=== PATIENT | female | born 1945 | race Caucasian/White ===

== ENCOUNTER 2017-01-25 13:41 | Emergency (ER) | payer MEDICARE, BC ==
[~2017-01-25] VITALS: Ht 165.1 cm; Wt 53.5 kg
[~2017-01-25 13:41] MED LIST: AMBIEN; AMBIEN5 MG ORAL; AUGMENTIN 875-1 EACH PO; CRESTOR10 MG PO; CRESTOR20 MG ORAL; PLAQUENIL200 MG ORAL; PREDNISONE5 MG ORAL; SULFAMETHOXAZO1 EAC2 ORAL; TRAMADOL HCL50 MG ORAL; XANAX; XANAX0.5 MG ORAL; [UNRECOGNIZED DRUG - OTHER] PO
[2017-01-25 13:58] VITALS: BP 113/60
--- NOTE | 2017-01-25 14:18 | Emergency Room Report ---
History of Present Illness General Chief Complaint: Animal Bite Source: Patient Present Illness HPI 71 YO Female presents to the ED c/o Itching, swelling, and erythema of the left foot s/p being stung by a bee while walking barefoot in her backyard. pt. reports that she took 25mg Benadryl [employer], and has been icing her foot, however swelling and erythema have been progressing since this am. pt. states tetanus vaccination was updated three years ago. denies fevers, or chills. pt. reports that she has a very weak immune system as she has lupus. denies wheezing, swelling of the lips or tongue, SOB, or dyspnea. pt. states she removed the stinger from the left middle toe using a kitchen knife, denies bleeding or open wounds otherwise. denies itching, reports moderate burning sensation 4/10 in severity. Denies CP, Palpitations, LOC, AMS, dizziness, Changes in Vision, Sensation, paresthesias, or a sudden severe headache. Allergies: Coded Allergies: MEPERIDINE HCL (Verified Allergy, Severe, HEART STOPPED, 05/22/12) Patient History Past Medical History: see triage record Past Surgical History: none Pertinent Family History: none Now: No Immunizations: UTD Reviewed Nursing Documentation: PMH: Agreed, PSxH: Agreed Review of Systems All Other Systems: negative except mentioned in HPI Physical Exam Vital Signs Date Time Temp Pulse Resp B/P Pulse Ox O2 Delivery O2 Flow Rate FiO2 01/25/17 13:49 98.6 84 15 113/60 98 Room Air Sp02 EP Interpretation: reviewed, normal General Appearance: no apparent distress, alert, GCS 15, non-toxic Head: normocephalic, atraumatic Eyes: bilateral eye PERRL, bilateral eye normal inspection ENT: hearing grossly normal, normal pharynx, no angioedema, normal voice Neck: full range of motion, supple/symm/no masses Respiratory: lungs clear, normal breath sounds, speaking full sentences Cardiovascular #1: regular rate, rhythm, no edema Musculoskeletal: back normal, gait/station normal, normal range of motion, non- tender, no calf tenderness Neurologic: alert, oriented x3, responsive, motor strength/tone normal, sensory intact, speech normal Psychiatric: judgement/insight normal, memory normal, mood/affect normal Skin: normal color, no rash, warm/dry, well hydrated, other - swelling , erythema, and increased temperature to the left foot, no obvious puncture wound , stinger or fb noted. pulses are intact. Lymphatic: no adenopathy Medical Decision Making PA Attestation Dr. Ventura is my supervising Physician whom patient management has been discussed with. Diagnostic Impression: Primary Impression: Local reaction to bee sting Qualified Codes: T63.443A - Toxic effect of venom of bees, assault, initial encounter ER Course 71 YO Female presents to the ED c/o Itching, swelling, and erythema of the left foot s/p being stung by a bee while walking barefoot in her backyard. pt. reports that she took 25mg Benadryl [employer], and has been icing her foot, however swelling and erythema have been progressing since this am. pt. states tetanus vaccination was updated three years ago. denies fevers, or chills. pt. reports that she has a very weak immune system as she has lupus. denies wheezing, swelling of the lips or tongue, SOB, or dyspnea. pt. states she removed the stinger from the left middle toe using a kitchen knife, denies bleeding or open wounds otherwise. denies itching, reports moderate burning sensation 4/10 in severity. Denies CP, Palpitations, LOC, AMS, dizziness, Changes in Vision, Sensation, paresthesias, or a sudden severe headache. Ddx considered but are not limited to cellulitis, Bee Sting, scabies, insect bites, tic bites, spider bites, contact dermatitis, Drug reaction, allergic reaction, fungal infection, lice. Vital signs: are WNL, pt. is afebrile H&PE are most consistent with local reaction to suspected bee- sting, in an immunocompromised pt. ORDERS: none required at this time, the diagnosis is clinical ED INTERVENTIONS: -Pt is given an Ice pack - Tylenol PO DISCHARGE: At this time pt. is stable for d/c to home. Will provide printed patient care instructions, and any necessary prescriptions. Care plan and follow up instructions have been discussed with the patient prior to discharge. Last Vital Signs Date Time Temp Pulse Resp B/P Pulse Ox O2 Delivery O2 Flow Rate FiO2 01/25/17 13:49 98.6 84 15 113/60 98 Room Air Disposition: HOME, SELF-CARE Condition: Stable Scripts Cephalexin* (KEFLEX*) 500 Mg Capsule 500 MG ORAL EVERY 12 HOURS for 7 Days, #14 CAP 0 Refills Prov: Deann Stoddard 01/25/17 Acetaminophen* (TYLENOL EXTRA STRENGTH*) 500 Mg Tablet 500 MG ORAL Q6H, #20 TAB 0 Refills Prov: Deann Stoddard 01/25/17 Patient Instructions: Insect Bite Additional Instructions: Take medications as directed. Follow up with a Primary Care Provider in 3-5 days, even if your symptoms have resolved. --Please review list of primary care clinics, if you do not already have a primary care provider Return sooner to ED if new symptoms occur, or current symptoms become worse. Do not drink alcohol, drive, or operate heavy machinery while taking Benadryl as this may cause drowsiness. - Please note that this Emergency Department Report was dictated using [employer] supervisor technology software, occasionally this can lead to erroneous entry secondary to interpretation by the dictation equipment. Deann Stoddard Jan 25, 2017 14:18
[2017-01-25] MEDS ORDERED: TYLENOL EXTRA500 MG ORAL (14:20)
[2017-01-25] MEDS ORDERED: CEPHALEXIN500 MG ORAL (14:22)
[2017-01-25 14:47] VITALS: BP 113/60
== END 2017-01-25 14:47 | disposition home or self-care (01) ==
LOC: EMR 14:16
DX: T63.441A Toxic effect of venom of bees, accidental (unintentional), initial encounter (principal); M79.89 Other specified soft tissue disorders; Y92.89 Other specified places as the place of occurrence of the external cause
CPT/HCPCS: 99284